=== PATIENT | male | born 1955 | race Caucasian/White ===

== ENCOUNTER 2019-12-07 19:57 | Emergency (ER) | payer MEDICARE ==
[~2019-12-07] VITALS: Ht 182.9 cm; Wt 99.8 kg
[2019-12-07] MEDS ORDERED: HYDROCODONE/APAP 5MG-325MG TAB PO ONE (20:30)
[2019-12-07] MEDS ORDERED: HYDROCODONE/APAP 5MG-325MG TAB ONE (20:42)
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
--- NOTE | 2019-12-07 21:16 | Diagnostic Imaging Report ---
SHOULDER LEFT 3 VIEWS HUMERUS LEFT 3 VIEWS HISTORY: Pain. Fall COMPARISON: None available. FINDINGS: Bones: No acute displaced fracture. Osseous alignment is within normal limits. Sclerosis and irregularity of the greater tuberosity suggests rotator cuff tendinopathy. Joints: The joint spaces are well-maintained. Soft tissues: The soft tissues appear unremarkable. IMPRESSION: 1. No acute fracture or dislocation of the right shoulder or humerus. 2. Findings suggestive of rotator cuff tendinopathy. Signed by: El Burton MD on 12/07/2019 9:13 PM
[2019-12-07 21:50] VITALS: BP 168/84
--- OUTSIDE RECORDS SUMMARY | 2019-12-07 22:47 | XMS REPORT | Clinical Summary ---
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 Never 04/12/2018 How many drinks containing alcohol do you have on No t asked a typical day when you are drinking? How often do you have six or more drinks on one Not asked occasion? Sex Assigned at Date Recorded Not on file Industry Job Start Date Occupation Not on file Not on file Not on file Travel End Travel History Travel Start No recent travel history available. Last Filed Vital Signs Not on file Plan of Treatment Not on file Results Not on fileafter 12/06/2018 Insurance Payer Benefit Subscriber ID Type Phone Address Plan / Group [employer] - [employer] CARE C[employer] [facility] xxxxxxxxxxx HMO/POS NETWORK Tyra ruiz (Home) [place] [phone] Advance Directives For more information, please contact: [facility] [address] [place] [address] Date Inactivated Comments Code Status Date Activated Full Code 04/18/2018 7:04 AM This code status was determined by: Patient
--- OUTSIDE RECORDS SUMMARY | 2019-12-07 22:47 | XMS REPORT | Continuity of Care Document ---
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 Name Role Phone Alex Beach PCP Unavailable BENSON BOND Attphys Unavailable DUMONTSHRUTHI Attphys Unavailable DUMONT, SHRUTHI NAVARRO Admphys Unavailable Problems Condition Name Condition Details Condition Category Status Onset Date Resolution Date Last Treatment Date Treating Clinician Comments Source Biliary colic Biliary colic Disease Active 2018-04-18 00:00:00 [facility] Allergies, Adverse Reactions, Alerts Allergy Name Allergy Type Status Severity Reaction(s) Onset Date Inacti ve Date Treating Clinician Comments Source Aspirin Drug Allergy Active Swelling 2018-04-09 00:00:00 [facility] Sulfa (Sulfonamide Antibiotics) Propensity to adverse reactions Activ e 2018-04-09 00:00:00 Childhood reaction [facility] Social History Social Habit Start Date Stop Date Quantity Comments Source History of tobacco use Current smoker [facility] History SDOH Alcohol Std Drinks [facility] History SDOH Alcohol Binge [facility] Sex Assigned At [facility] History SDOH Alcohol Frequency 2018-04-12 00:00:00 2018-04-12 00:00:0 0 1 [facility] Smoking Status Start Date Stop Date Source Former smoker 2018-04-18 00:00:00 2018-04-18 00:00:00 [facility] Medications This patient has no known medications. Procedures This patient has no known procedures. Results Test Description Test Time Test Comments Results Result Comments Source HUMERUS 2 VIEW LT - HOPD 2019-12-07 21:06:00 [facility] [address] [address] Patient Name: TONNY HALE MR #: [id number] : 1955 Age/Sex: 64/M Req #: [id number] Adm Physician: Ordered by: BENSON BOND MD Report #: [id number] Location: [facility] Room/Bed: Procedure: [id number] HOPD/HUMERUS 2 VIEW LT - HOPD Exam Date: 12/07/19 Exam Time: 2044 REPORT STATUS: Signed SHOULDER LEFT 3 VIEWS HUMERUS LEFT 3 VIEWS HISTORY: Pain. Fall COMPARISON: None available. FINDINGS: Bones: No acute displaced fracture. Osseous alignment is within normal limits. Sclerosis and irregularity of the greater tuberosity suggests rotator cuff tendinopathy. Joints: The joint spaces are well- maintained. Soft tissues: The soft tissues appear unremarkable. IMPRESSION: 1. No acute fracture or dislocation of the right shoulder or humerus. 2. Findings suggestive of rotator cuff tendinopathy. Signed by: Melanie Van MD on 12/07/2019 9:13 PM Dictated By: MELANIE VAN MD 12 Transcribed By: SERA on 12/07/192112 COPY TO: BENSON BOND MD SHOULDER 2+VW LT -HOPD 2019-12-07 21:06:00 [address] [address] Patient Name: TONNY HALE MR #: [id number] : 1955 Age/Sex: 64/M Req #: [id number] Adm Physician: Ordered by: BENSON BOND MD Report #: [id number] Location: [facility] Room/Bed: Procedure: [id number] HOPD/SHOULDER 2+VW LT -HOPD Exam Date: 12/07/19 Exam Time: 2044 REPORT STATUS: Signed SHOULDER LEFT 3 VIEWS HUMERUS LEFT 3 VIEWS HISTORY: Pain. Fall COMPARISON: None available. FINDINGS: Bones: No acute displaced fracture. Osseous alignment is within normal limits. Sclerosis and irregularity of the greater tuberosity suggests rotator cuff tendinopathy. Joints: The joint spaces are well- maintained. Soft tissues: The soft tissues appear unremarkable. IMPRESSION: 1. No acute fracture or dislocation of the right shoulder or humerus. 2. Findings suggestive of rotator cuff tendinopathy. Signed by: Melanie Van MD on 12/07/2019 9:13 PM Dictated By: MELANIE VAN MD 12 Transcribed By: SERA on 12/07/192112 COPY TO: BENSON BOND MD TISSUE EXAM 2018-04-20 16:20:00 Surgical Pat hology Report Case: [id number] Authorizing Provider: Melanie Dumont MD Collected: 04/18/2018 0944 Ordering Location: [facility] PERI[facility] Received: 04/18/2018 1154 SERVICES Pathologist: Dilma Saini MD Specimen: Gallbladder GALLBLADDER, MADISON CYSTECTOMY - CHRONIC CHOLECYSTITIS WITH CHOLELITHIASIS - CHOLESTEROLOSIS Signing Pathologist Direct Phone Line: [phone] signed by Dilma Saini MD on 04/20/2018 at 4:20 [id number] Specimen is received in formalin-filled container labeled with the patient's information and labeled "gallbladder" and consists of an intact gallbladder measuring 7 x 5 cm and gallbladder wall thickness up to 0.4 cm. The gallbladder lumen is filled with green thin fluid and includes two green faceted stones measuring up to 1.5 cm. The mucosa is strong-red and velvety with cholesterolosis throughout. Tie Hacker sections submitted as follows: A1 margin en face; A2 gallbladder wall. CG/bc Performed.
== END 2019-12-07 21:50 | disposition home or self-care (01) ==
LOC: FSED 20:30
DX: S40.012A Contusion of left shoulder, initial encounter (principal); M25.512 Pain in left shoulder; W18.39XA Other fall on same level, initial encounter; Y93.83 Activity, rough housing and horseplay; Y92.008 Other place in unspecified non-institutional (private) residence as the place of occurrence of the external cause
CPT/HCPCS: 99283

== ENCOUNTER 2024-10-10 17:12 | Inpatient (IN) | payer MEDICARE ==
[~2024-10-10] VITALS: Ht 182.9 cm; Wt 106.6 kg
[~2024-10-10 17:12] MED LIST: CEFDINIR300 MG PO
[2024-10-10] MEDS ORDERED: Morphine 4mg INJECTION 4 MG/ML INJ IV STA (18:27)
[2024-10-10 18:36] LABS: BASOPHILS % 0.9 % (0.0-1.0); EOSINOPHILS % 2.5 % (0.0-6.0); LYMPHOCYTES % 22.3 % (18.0-39.1); MONOCYTES % 7.3 % (4.4-11.3); NEUTROPHILS % 66.7 % (38.7-80.0); RED CELL DISTRIBUTION WIDTH 14.0 % (11.7-14.4)
[2024-10-10 18:52] LABS: LEUKOCYTE ESTERASE ,URINE NEGATIVE (NEGATIVE)
[2024-10-10 18:53] LABS: PROTEIN,URINE DIPSTICK >=300 (NEGATIVE); URINE UROBILINOGEN 1 mg/dL (0.2 - 1)
[2024-10-10 19:00] LABS: EST GLOMERULAR FILTRATION RATE 80.0 ML/MIN (>=60)
[2024-10-10] MEDS ORDERED: IOPAMIDOL 370 MG/ML 100 ML INFUS..BTL INJ ONE (19:14)
[2024-10-10] MEDS ORDERED: SODIUM CHLORIDE 0.9% 1000ML 1,000 ML ONE (20:29)
[2024-10-10] MEDS: SODIUM CHLORIDE 0.9% 1000ML 1,000 ML IV STA (20:35)
[2024-10-10] MEDS: Morphine 4mg INJECTION 4 MG/ML INJ IV ONE (21:05)
[2024-10-10] MEDS: ONDANSETRON HCL INJ 2MG/ML 2ML 2 MG/ML VIAL IV STA ×2 (21:05→21:08)
[2024-10-10] MEDS ORDERED: ONDANSETRON HCL INJ 2MG/ML 2ML 2 MG/ML VIAL IV PRN (22:00)
[2024-10-10] MEDS: SODIUM CHLORIDE 0.9% 1000ML 1,000 ML IV SCH (22:53)
[2024-10-10 22:55] VITALS: PULSE 53; RESP 16; TEMP 97.9
[2024-10-10] MEDS: HYDROMORPHONE 1MG/1ML INJ IV STA (23:16)
[2024-10-11] VITALS (9 sets, daily range): BP systolic 142–199; BP diastolic 74–98; PULSE 70–94; RESP 17–18; TEMP 98–98.7; O2SAT 96–100
[2024-10-11] MEDS: Morphine 4mg INJECTION 4 MG/ML INJ IV PRN (01:21)
[2024-10-11 05:36] LABS: BASOPHILS % 0.2 % (0.0-1.0); EOSINOPHILS % 0.0 % (0.0-6.0); LYMPHOCYTES % 4.4 % (18.0-39.1); MONOCYTES % 3.3 % (4.4-11.3); NEUTROPHILS % 91.5 % (38.7-80.0); RED CELL DISTRIBUTION WIDTH 14.0 % (11.7-14.4)
[2024-10-11 06:02] LABS: EST GLOMERULAR FILTRATION RATE 61.0 ML/MIN (>=60)
[2024-10-11] MEDS: LOSARTAN POTASSIUM 100 MG TAB PO SCH (08:46)
[2024-10-11] MEDS: HYDROMORPHONE 1MG/1ML INJ IV PRN (08:50)
[2024-10-11] MEDS ORDERED: CARVEDILOL 3.125 MG TAB PO SCH (09:00)
[2024-10-11] MEDS ORDERED: ALBUTEROL/IPRATROPIUM 3 ML NEB NEB PRN (16:30)
[2024-10-11] MEDS ORDERED: ONDANSETRON HCL INJ 2MG/ML 2ML 2 MG/ML VIAL IV PRN (16:30)
[2024-10-11] MEDS ORDERED: MELATONIN 5 MG TABLET PO PRN (16:30)
[2024-10-11] MEDS ORDERED: DIPHENHYDRAMINE HCL 25 MG CAP PO PRN (16:30)
[2024-10-11] MEDS ORDERED: SIMETHICONE 80 MG CHEW PO PRN (16:30)
[2024-10-11] MEDS ORDERED: BENZONATATE 100 MG CAP PO PRN (16:30)
[2024-10-11] MEDS ORDERED: LIDOCAINE 4% PATCH TP PRN (16:30)
[2024-10-11] MEDS ORDERED: DEXTROSE 50% SYRINGE 50 ML IV PRN (16:30)
[2024-10-11] MEDS: NIFEDIPINE CR 30 MG TAB PO SCH (16:56)
[2024-10-11] MEDS: HYDRALAZINE HCL 20 MG/ML VIAL IV PRN (18:53)
[2024-10-12] VITALS (10 sets, daily range): BP systolic 121–183; BP diastolic 60–81; PULSE 84–110; RESP 18–20; TEMP 97.5–99.1; O2SAT 95–100
[2024-10-12 05:35] LABS: BASOPHILS % 0.2 % (0.0-1.0); EOSINOPHILS % 0.0 % (0.0-6.0); LYMPHOCYTES % 4.7 % (18.0-39.1); MONOCYTES % 5.6 % (4.4-11.3); NEUTROPHILS % 88.7 % (38.7-80.0); RED CELL DISTRIBUTION WIDTH 14.4 % (11.7-14.4)
[2024-10-12 05:50] LABS: EST GLOMERULAR FILTRATION RATE 51.0 ML/MIN (>=60); PHOSPHORUS 2.3 MG/DL (2.3-4.7)
[2024-10-12] MEDS ORDERED: LIDOCAINE HCL 2% LOCAL INJ 5 ML SDV VIAL INJ ONE (06:46)
[2024-10-12] MEDS ORDERED: FENTANYL CITRATE/PF 100MCG/2 ML INJ ONE (06:46)
[2024-10-12] MEDS ORDERED: PROPOFOL IV EMULSION 10 MG/ML 20 ML VIAL ONE (06:47)
[2024-10-12] MEDS ORDERED: ONDANSETRON HCL INJ 2MG/ML 2ML 2 MG/ML VIAL ONE (07:33)
[2024-10-12] MEDS ORDERED: PHENYLEPHRINE HCL 1% 10 MG/ML VIAL ONE (07:33)
[2024-10-12] MEDS ORDERED: DEXAMETHASONE SOD PHOS INJ 4 MG/ML SDV ONE (07:33)
[2024-10-12] MEDS ORDERED: KETOROLAC TROMETHAMINE 30 MG/ML VIAL ONE (07:33)
[2024-10-12] MEDS ORDERED: METOCLOPRAMIDE HCL 10 MG/2ML VIAL ONE (07:33)
[2024-10-12] MEDS: MEPERIDINE HCL INJ 25 MG/ML VIAL ONE (08:20)
[2024-10-12] MEDS ORDERED: PHENAZOPYRIDINE HCL 100 MG TAB PO PRN (08:30)
[2024-10-12] MEDS: PANTOPRAZOLE SOD 40 MG TABEC PO SCH (08:57)
[2024-10-12] MEDS: SOLIFENACIN SUCCINATE 5 MG TAB PO SCH (09:57)
[2024-10-12 11:30] LABS: BAND NEUTROPHILS % (MANUAL) 3 %; LYMPHOCYTES % (MANUAL) 5 % (19-48); MONOCYTES % (MANUAL) 5 % (3.4-9.0); NEUTROPHILS % (MANUAL) 87 % (40-74); PLATELET ESTIMATE ADEQUATE; PLATELET MORPHOLOGY COMMENT NORMAL; RBC MORPHOLOGY COMMENT NORMAL
[2024-10-12] MEDS: ACETAMINOPHEN 325 MG TAB PO PRN (23:37)
[2024-10-13] VITALS (9 sets, daily range): BP systolic 144–152; BP diastolic 70–78; PULSE 89–107; RESP 17–21; TEMP 98.1–99.1; O2SAT 95–97
[2024-10-13 05:42] LABS: BASOPHILS % 0.2 % (0.0-1.0); EOSINOPHILS % 0.2 % (0.0-6.0); LYMPHOCYTES % 8.0 % (18.0-39.1); MONOCYTES % 8.9 % (4.4-11.3); NEUTROPHILS % 82.3 % (38.7-80.0); RED CELL DISTRIBUTION WIDTH 14.6 % (11.7-14.4)
[2024-10-13 06:04] LABS: EST GLOMERULAR FILTRATION RATE 80.0 ML/MIN (>=60)
[2024-10-13] MEDS: METOPROLOL SUCCINATE 25 MG TAB XL PO SCH (09:43)
[2024-10-13] MEDS: HYDROCODONE/APAP 5MG-325MG TAB PO PRN (14:53)
[2024-10-14] VITALS (9 sets, daily range): BP systolic 155–176; BP diastolic 76–88; PULSE 82–100; RESP 16–20; TEMP 98.5–99.3; O2SAT 95–98
[2024-10-14 05:37] LABS: BASOPHILS % 0.4 % (0.0-1.0); EOSINOPHILS % 0.4 % (0.0-6.0); LYMPHOCYTES % 7.6 % (18.0-39.1); MONOCYTES % 8.2 % (4.4-11.3); NEUTROPHILS % 82.8 % (38.7-80.0); RED CELL DISTRIBUTION WIDTH 14.6 % (11.7-14.4)
[2024-10-14 06:11] LABS: EST GLOMERULAR FILTRATION RATE 92.0 ML/MIN (>=60)
[2024-10-14] MEDS: DOCUSATE SODIUM 100 MG CAP PO PRN (10:07)
[2024-10-14] MEDS: AMLODIPINE BESYLATE 5 MG TAB PO SCH (11:13)
[2024-10-14] MEDS: LIDOCAINE 4% PATCH TP SCH (16:56)
[2024-10-14] MEDS: IBUPROFEN 400 MG TAB PO ONE (17:04)
[2024-10-14] MEDS: IBUPROFEN 600 MG TAB PO SCH (21:00)
[2024-10-15] VITALS (7 sets, daily range): BP systolic 130–160; BP diastolic 66–91; PULSE 79–88; RESP 18–20; TEMP 98.7–99.5; O2SAT 95–99
[2024-10-15 05:29] LABS: BASOPHILS % 0.6 % (0.0-1.0); EOSINOPHILS % 1.1 % (0.0-6.0); LYMPHOCYTES % 10.9 % (18.0-39.1); MONOCYTES % 9.4 % (4.4-11.3); NEUTROPHILS % 77.6 % (38.7-80.0); RED CELL DISTRIBUTION WIDTH 14.5 % (11.7-14.4)
[2024-10-15 06:14] LABS: EST GLOMERULAR FILTRATION RATE 93.0 ML/MIN (>=60)
[2024-10-15] MEDS: POTASSIUM CHLORIDE 20 MEQ TAB CR PO PRN (09:40)
[2024-10-15] MEDS: PEG (High)/E-LYTE SOLN 4,000 ML BTL PO ONE (10:45)
[2024-10-16] VITALS (12 sets, daily range): BP systolic 130–179; BP diastolic 73–112; PULSE 68–84; RESP 10–20; TEMP 97.1–98.7; O2SAT 92–98
[2024-10-16 10:24] LABS: BASOPHILS % 0.8 % (0.0-1.0); EOSINOPHILS % 2.3 % (0.0-6.0); LYMPHOCYTES % 15.8 % (18.0-39.1); MONOCYTES % 8.3 % (4.4-11.3); NEUTROPHILS % 72.5 % (38.7-80.0); RED CELL DISTRIBUTION WIDTH 14.3 % (11.7-14.4)
[2024-10-16 10:54] LABS: EST GLOMERULAR FILTRATION RATE 93.0 ML/MIN (>=60)
[2024-10-16] MEDS ORDERED: ACETAMINOPHEN 1000 MG/100 ML IV PRN (14:45)
[2024-10-16] MEDS: SODIUM CHLORIDE 0.9% 250ML IRRIG IR SCH (14:45)
[2024-10-16] MEDS ORDERED: DIPHENHYDRAMINE HCL INJ 50 MG/ML VIAL IM PRN (14:45)
[2024-10-16] MEDS ORDERED: ONDANSETRON HCL INJ 2MG/ML 2ML 2 MG/ML VIAL IV PRN (14:45)
[2024-10-16] MEDS ORDERED: NALOXONE HCL INJ 0.4 MG/ML AMP IV PRN (14:45)
[2024-10-16] MEDS ORDERED: LIDOCAINE HCL 2% LOCAL INJ 5 ML SDV VIAL INJ ONE (16:31)
[2024-10-16] MEDS ORDERED: PROPOFOL IV EMULSION 10 MG/ML 20 ML VIAL ONE (16:31)
[2024-10-16] MEDS ORDERED: ROCURONIUM BROMIDE 1 ML IV ONE ×2 (16:31→18:15)
[2024-10-16] MEDS ORDERED: SUCCINYLCHOLINE CHLORIDE 20 MG/ML 10ML VIAL ONE (16:32)
[2024-10-16] MEDS ORDERED: KETOROLAC TROMETHAMINE 30 MG/ML VIAL ONE (17:42)
[2024-10-16] MEDS ORDERED: METOCLOPRAMIDE HCL 10 MG/2ML VIAL ONE (17:42)
[2024-10-16] MEDS ORDERED: DEXAMETHASONE SOD PHOS INJ 4 MG/ML SDV ONE (17:42)
[2024-10-16] MEDS ORDERED: ONDANSETRON HCL INJ 2MG/ML 2ML 2 MG/ML VIAL ONE (17:42)
[2024-10-16] MEDS ORDERED: EPHEDRINE SULFATE INJ 50 MG/ML VIAL ONE (17:42)
[2024-10-16] MEDS: SODIUM CHLORIDE 0.9% 1000ML 1,000 ML ONE (18:10)
[2024-10-16] MEDS: PIPERACILLIN/TAZOBACTAM 3.375 GM VIAL ONE (18:10)
[2024-10-16] MEDS ORDERED: HYDROMORPHONE 2MG/ML ONE (19:00)
[2024-10-16] MEDS ORDERED: SUGAMMADEX SODIUM 200 MG/2 ML VIAL IV ONE ×2 (19:02→19:24)
[2024-10-16] MEDS: SODIUM CHLORIDE 0.9% 100 ML ONE (20:14)
[2024-10-16] MEDS: D5.45%NS/KCL 20MEQ 1,000 ML IV SCH (20:46)
[2024-10-16] MEDS: PROPOFOL IV EMULSION 10MG/ML 100 ML IV PRN (20:50)
[2024-10-16] MEDS: MORPHINE SULFATE 1 MG/ML 30ML PCA IV PRN (22:57)
[2024-10-17] VITALS (18 sets, daily range): BP systolic 116–185; BP diastolic 52–103; PULSE 64–86; RESP 10–22; TEMP 97.7–98.2; O2SAT 96–100
[2024-10-17 06:23] LABS: BASOPHILS % 0.2 % (0.0-1.0); EOSINOPHILS % 0.0 % (0.0-6.0); LYMPHOCYTES % 4.3 % (18.0-39.1); MONOCYTES % 7.0 % (4.4-11.3); NEUTROPHILS % 88.0 % (38.7-80.0); RED CELL DISTRIBUTION WIDTH 14.2 % (11.7-14.4)
[2024-10-17 06:51] LABS: EST GLOMERULAR FILTRATION RATE 82.0 ML/MIN (>=60)
[2024-10-18] VITALS (11 sets, daily range): BP systolic 162–182; BP diastolic 68–97; PULSE 54–97; RESP 13–26; TEMP 97.7–98.7; O2SAT 95–99
[2024-10-18 05:19] LABS: BASOPHILS % 0.3 % (0.0-1.0); EOSINOPHILS % 1.0 % (0.0-6.0); LYMPHOCYTES % 9.4 % (18.0-39.1); MONOCYTES % 9.4 % (4.4-11.3); NEUTROPHILS % 79.4 % (38.7-80.0); RED CELL DISTRIBUTION WIDTH 14.3 % (11.7-14.4)
[2024-10-18 06:14] LABS: EST GLOMERULAR FILTRATION RATE 71.0 ML/MIN (>=60)
[2024-10-18] MEDS ORDERED: Morphine 2mg Syringe 2 MG/ML SYR IV PRN (14:15)
[2024-10-18] MEDS: FUROSEMIDE INJ 10 MG/ML 2 ML VIAL IV SCH (16:01)
[2024-10-18] MEDS: SENNA-S TABLET PO SCH (16:01)
[2024-10-18] MEDS: BISACODYL 10 MG SUPP PR ONE (16:01)
[2024-10-18] MEDS: NIFEDIPINE CR 30 MG TAB PO SCH (16:02)
[2024-10-19] VITALS (19 sets, daily range): BP systolic 113–149; BP diastolic 60–98; PULSE 71–99; RESP 11–23; TEMP 97.8–99.1; O2SAT 94–99
[2024-10-19 06:44] LABS: BASOPHILS % 0.6 % (0.0-1.0); EOSINOPHILS % 0.7 % (0.0-6.0); LYMPHOCYTES % 7.8 % (18.0-39.1); MONOCYTES % 8.4 % (4.4-11.3); NEUTROPHILS % 81.8 % (38.7-80.0); RED CELL DISTRIBUTION WIDTH 13.9 % (11.7-14.4)
[2024-10-19 07:27] LABS: EST GLOMERULAR FILTRATION RATE 65.0 ML/MIN (>=60)
[2024-10-19] MEDS: BISACODYL 10 MG SUPP PR PRN (09:28)
[2024-10-19] MEDS: FUROSEMIDE INJ 10 MG/ML 4 ML VIAL IV ONE (16:20)
[2024-10-20] VITALS (13 sets, daily range): BP systolic 116–142; BP diastolic 68–78; PULSE 75–100; RESP 14–20; TEMP 98.3–98.7; O2SAT 96–98
[2024-10-20 07:16] LABS: BASOPHILS % 0.8 % (0.0-1.0); EOSINOPHILS % 1.6 % (0.0-6.0); LYMPHOCYTES % 13.6 % (18.0-39.1); MONOCYTES % 7.4 % (4.4-11.3); NEUTROPHILS % 75.9 % (38.7-80.0); RED CELL DISTRIBUTION WIDTH 13.9 % (11.7-14.4)
[2024-10-20 07:45] LABS: EST GLOMERULAR FILTRATION RATE 59.0 ML/MIN (>=60)
[2024-10-20] MEDS: ENOXAPARIN SOD INJ 40 MG/0.4 ML SYR SC SCH ×2 (07:57→16:27)
[2024-10-20] MEDS: ACETAMINOPHEN/CODEINE 300MG - 30MG TAB PO PRN (09:19)
[2024-10-20] MEDS: Morphine 2mg Syringe 2 MG/ML SYR IV PRN (14:48)
[2024-10-21 03:00] VITALS: BP 156/59; PULSE 104; RESP 16; TEMP 97.6
[2024-10-21 05:23] LABS: BASOPHILS % 0.9 % (0.0-1.0); EOSINOPHILS % 2.6 % (0.0-6.0); LYMPHOCYTES % 12.6 % (18.0-39.1); MONOCYTES % 8.4 % (4.4-11.3); NEUTROPHILS % 74.9 % (38.7-80.0); RED CELL DISTRIBUTION WIDTH 14.0 % (11.7-14.4)
[2024-10-21 06:07] LABS: EST GLOMERULAR FILTRATION RATE 62.0 ML/MIN (>=60)
[2024-10-21 07:15] VITALS: PULSE 85; RESP 16; O2SAT 96
[2024-10-21 08:00] VITALS: BP 151/89; PULSE 85; RESP 16; TEMP 97.9; TEMP 98.2; O2SAT 100
[2024-10-21] MEDS: HYDROCODONE/APAP 5MG-325MG TAB PO PRN (11:49)
[2024-10-21 12:00] VITALS: BP 132/82; PULSE 83; RESP 16; TEMP 98.2; O2SAT 98
[2024-10-21 16:00] VITALS: BP 137/75; PULSE 79; RESP 14; TEMP 98.1; O2SAT 97
[2024-10-21] MEDS ORDERED: TOPROL XL25 MG PO (16:20)
[2024-10-21] MEDS ORDERED: PROCARDIA XL30 MG (16:21)
[2024-10-21] MEDS ORDERED: ACETAMINOPHEN-1 EAC3 PO (16:24)
== END 2024-10-21 17:00 | disposition home or self-care (01) | DRG 657 ==
LOC: ER 17:53 → ERHOLD 21:56 → MED/SURG 23:33 → ICU 10-16 19:49
PROVIDERS: ADMIT Internal Medicine; ATTEND Internal Medicine
PROC: BT141ZZ Fluoroscopy of Kidneys, Ureters and Bladder using Low Osmolar Contrast (ICD-10-PCS; 2024-10-12)
PROC: 0T778DZ Dilation of Left Ureter with Intraluminal Device, Via Natural or Artificial Opening Endoscopic (ICD-10-PCS; principal; 2024-10-12 07:12)
PROC: 0TT10ZZ Resection of Left Kidney, Open Approach (ICD-10-PCS; 2024-10-16)
PROC: 0T9B70Z Drainage of Bladder with Drainage Device, Via Natural or Artificial Opening (ICD-10-PCS; 2024-10-16)
DX: C64.2 Malignant neoplasm of left kidney, except renal pelvis (principal); N13.6 Pyonephrosis; N17.9 Acute kidney failure, unspecified; I16.0 Hypertensive urgency; R31.0 Gross hematuria; D72.829 Elevated white blood cell count, unspecified; D75.839 Thrombocytosis, unspecified; I10 Essential (primary) hypertension; Z88.2 Allergy status to sulfonamides; Z88.6 Allergy status to analgesic agent; Z90.49 Acquired absence of other specified parts of digestive tract; Z90.81 Acquired absence of spleen; Z87.891 Personal history of nicotine dependence; Z82.49 Family history of ischemic heart disease and other diseases of the circulatory system
CPT/HCPCS: 36415; 71045; 71046; 74177; 74420; 80048; 80053; 81001; 82550; 83036; 83690; 83735; 84100; 84443; 84484; 85025; 86850; 86900; 87040; 87086; 88112; 88305; 88307; 93005; 93306; 94002; 94799; 99284; C1758; C1766; C1769; C2617; J0330; J0360; J1100; J1171; J1650; J1885; J1938; J2003; J2175; J2270; J2371; J2405; J2470; J2543; J2765; J7030; J7050; Q9967